=== PATIENT | male | born 1955 | race Caucasian/White ===

== ENCOUNTER 2023-06-14 14:45 | Emergency (ER) | payer OTHER, SELFPAY ==
[2023-06-14 14:57] VITALS: BP 142/111; PULSE 82; RESP 18; TEMP 36.6; O2SAT 98
--- NOTE | 2023-06-14 15:01 | ED.URI ---
HPI - URI/Sore Throat General Chief Complaint: Upper Respiratory Infection Stated Complaint: Congestion Time Seen by Provider: 06/14/23 15:01 Source: patient Mode of arrival: ambulatory Limitations: no limitations History of Present Illness HPI Narrative: 67-year-old male presents with complaint of cough, congestion for the past 3 weeks. Taking [id number] Coricidin without relief of symptoms. Reports cough worse in the morning. No chest pain or shortness of breath. Afebrile. No pain. Denies nausea vomiting diarrhea. Patient well-appearing and talkative. Smokes 1 pack cigarettes a day. All systems reviewed and negative except as noted above. Related Data Allergies Allergy/AdvReac Type Severity Reaction Status Date / Time Penicillins AdvReac Mild Hives Verified 06/14/23 15:03 Review of Systems Review of Systems: CONSTITUTIONAL: Denies fever, chills, or sweats. EYES: Denies visual changes, redness, or discharge. ENT: Reports rhinorrhea, congestion. Denies sore throat, or otalgia. CARDIOVASCULAR: Denies chest pain, palpitations, or edema. RESPIRATORY: reports cough. Denies dyspnea. GASTROINTESTINAL: Denies abdominal pain, nausea, vomiting, or diarrhea. GENITOURINARY: Denies dysuria or hematuria. SKIN: Denies rash or itching. MUSCULOSKELETAL: Denies back pain, joint pain, or myalgia. NEUROLOGIC: Denies headache, numbness, or weakness. PSYCHIATRIC: Denies anxiety or depression. All other systems reviewed are negative, except as documented in HPI. [facility] Past Medical History Medical History Arthritis Bronchitis Smoker Tobacco use disorder Surgical History Surgical History H/O colonoscopy 2019 Family History Family History Mother Cerebrovascular accident Family history of heart disease in male family member before age 55 Social History Social History (Updated 02/05/23 @ 08:26 by Kinza Singleton) Smoking packs per day: 0.75 Smoking cigarettes per day: 15.0 Smoking status: Current every day smoker Tobacco type: cigarettes Alcohol intake: current Drinks per week: 5 Substance use: never Substance use type: does not use Lack of Transportation: No Lack of Food: Never True Current Housing: I Have Housing Concerned About Future Housing: No Difficulty Paying Gas/Electric Bills: No Difficulty Paying for Meds: No Currently Unemployed: No Difficulty w/ Childcare or Family Care: No Living arrangements: with family Occupation/Education: occupation 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 There is no relevant family history pertinent to the presenting complaint. Exam Narrative: GENERAL: This is a well-nourished, well-developed patient, in no apparent distress. HEAD: normocephalic, atraumatic. EYES: PERRL. Sclera clear/white. Vision is grossly intact. EARS: External ears normal, auditory canals clear and without drainage, Fluid bilateral TMs without erythema or perforation.. Hearing grossly intact. NOSE: External nose normal with clear nasal drainage, Erythema to nares without significant swelling. THROAT: Mucous membranes moist, erythema with postnasal drainage. NECK: Neck supple, non-tender without lymphadenopathy, masses or thyromegaly. CARDIOVASCULAR: Regular rate and rhythm without murmurs, gallops, or rubs. RESPIRATORY: Rhonchi and upper lung kendrick. Breath sounds equal bilaterally. No wheezes, rales, or rhonchi. SKIN: warm, Dry, intact with no suspicious lesions or rash, good texture and turgor. NEURO: a
== END 2023-06-14 15:19 | disposition home or self-care (01) ==
PROVIDERS: Emergency Provider Nurse Practitioner Family; PCP Family Medicine
DX: J06.9 Acute upper respiratory infection, unspecified (principal); F17.210 Nicotine dependence, cigarettes, uncomplicated; M19.90 Unspecified osteoarthritis, unspecified site
CPT/HCPCS: 99213; G0463

== ENCOUNTER 2023-12-26 08:15 | Outpatient (CLI) | payer MEDICARE, SELFPAY ==
--- NOTE | ~2023-12-26 | US_ITS ---
Thyroid ultrasound. Clinical History: Thyroid nodule Findings: Real-time sonography of the thyroid gland was performed. The right lobe measures 5.6 x 2.0 x 1.9 cm. The left lobe measures 4.6 x 1.6 x 2.2 cm. The isthmus is 5 mm in AP diameter. There is a 9 mm cystic nodule with mural nodularity in the right inferior pole. Impression: 9 mm cystic nodule with mural nodularity. Given small size, no definitive follow-up required. Reviewed, dictated and finalized at location M. Impression: 9 mm cystic nodule with mural nodularity. Given small size, no definitive follo w-up required.
--- NOTE | ~2023-12-26 | CT_ITS ---
Corrected Report Correction to Ordering Provider 12/27/2023 Val This report was recreated on 12/27/2023. Original report was signed by Enrique Guzman M.D. on 12/26/2023 9:[address] Scan of the Chest without Contrast: Clinical Indication: Lung cancer screening, nicotine dependence Technique: Contiguous sections were acquired throughout the chest without intravenous contrast. Dose reduction technique was used on this scan by utilizing automated exposure control and iterative reconstruction technique. The dose-length product (DLP) was 179.06 mGy-cm. Findings: There is no evidence of any significant mediastinal, hilar or axillary lymphadenopathy. The mediastinal soft tissues appear normal. There is no evidence of pleural or pericardial effusion. There is an irregular area of consolidation at the right lung base, possibly with focal air bronchograms superiorly. There is nearby linear scarring in the right lower lobe. No other pulmonary nodule evident. Images through the upper abdomen reveal no abnormalities. Impression: Lung RADS 4B: Very suspicious. Irregular consolidation right lung base which could reflect pneumonia versus possibly neoplasm. Short-term follow up CT scan in one month after appropriate interval therapy recommended. Tissue sampling could also be considered at this time to establish histologic diagnosis. Reviewed, dictated and finalized at location . MTDD Impression: Lung RADS 4B: Very suspicious. Irregular consolidation right lung base which co uld reflect pneumonia versus possibly neoplasm. Short-term follow up CT scan in one month after appropriate interval therapy recommended. Tissue sampling coul d also be considered at this time to establish histologic diagnosis.
== END 2023-12-26 08:16 ==
PROVIDERS: PCP Internal Medicine; Visit Provider Internal Medicine
DX: Z12.2 Encounter for screening for malignant neoplasm of respiratory organs (principal); R91.8 Other nonspecific abnormal finding of lung field; E04.1 Nontoxic single thyroid nodule; R05.9 Cough, unspecified; Z87.891 Personal history of nicotine dependence
CPT/HCPCS: 71271; 76536

== ENCOUNTER 2024-01-24 09:21 | Outpatient (CLI) | payer MEDICARE, SELFPAY ==
--- NOTE | ~2024-01-24 | CT_ITS ---
EXAMINATION: CT diagnostic chest wo con DATE: 01/24/2024 09:53 INDICATION: nicotine dependence, f/u from abn lung screening TECHNIQUE: Computed tomography (CT) of the chest was performed without intravenous contrast. Addition al 3D reconstructions utilizing coronal maximum intensity projection (MIP) were performed. Automated exposure control and iterative reconstruction technique were employed. The dose-length product was 19 6.34 mGy-cm. COMPARISON: CT dated 12/26/2023 FINDINGS: Mild discoid atelectasis/scarring at the lingula. Additional linear discoid atelectasis in the right lower lobe. At the medial aspect of the tendon atelectasis/scarring is a region of consolidation whic h appears wedge-shaped on both the sagittal and coronal images extending from the hilum towards the p osterior sulcus of the right lower lobe. The region of consolidation appears to have subjectively dec reased in thickness on both the sagittal and coronal imaging although it is difficult to identify exa ctly comparable location for definitive quantitative comparison. 3 mm likely intrafissural lymph node along the right minor fissure. No other suspicious pulmonary nodules, pulmonary edema or pleural eff usion. Heart size is normal. Small amount of atherosclerotic coronary artery calcification. No perica rdial effusion. Thoracic aorta is normal in caliber. No pathologically enlarged thoracic lymphadenopa thy. Mild to moderate thoracic spondylosis with chronic mild anterior wedging at L1 and L2. Subtle ap proximately 1 cm low-attenuation left renal cyst. IMPRESSION: 1. Subjective decrease in size on both sagittal and coronal imaging of a wedge-shaped region of conso lidation in the posterior basilar segment of the right lower lobe which most likely represents residu al post pneumonia or atelectasis. Would recommend continued follow-up in 3 months with low-dose nonco ntrast chest CT. Reviewed, dictated and finalized at location B. IMPRESSION: 1. Subjective decrease in size on both sagittal and coronal imaging of a wedge- shaped region of consolidation in the posterior basilar segment of the right lo wer lobe which most likely represents residual post pneumonia or atelectasis. W ould recommend continued follow-up in 3 months with low-dose noncontrast chest CT.
== END 2024-01-24 09:22 ==
LOC: GOSHIMG 09:22
PROVIDERS: PCP Internal Medicine; Visit Provider Internal Medicine
DX: R91.8 Other nonspecific abnormal finding of lung field (principal); Z87.891 Personal history of nicotine dependence
CPT/HCPCS: 71250

== ENCOUNTER 2024-05-01 04:04 | Day surgery (SDC) | payer MEDICARE, SELFPAY ==
[2024-04-10 09:37] VITALS: BMI 31.1
--- NOTE | 2024-05-01 11:02 | WPDANESEPPF ---
Anes - Initial Pre Proc Eval Procedure: Operation Date: 05/01/24 13:30 Proposed Procedures p Colonoscopy - Brendan Edge MD Date/Time: 05/01/24 11:02 Surgeon: Brendan Edge MD Pre Op Diagnosis: Personal hx. colon polyps Patient Data Age: 68 Gender: M Height: 1.85 m Weight: 107 kg Allergies Allergy/AdvReac Type Severity Reaction Status Date / Time Penicillins AdvReac Mild Hives Verified 05/01/24 12:17 Home Medications Medication Instructions Recorded Confirmed Type fenofibrate 160 mg tablet See Rx Instructions .Route 08/19/23 05/01/24 Rx .COMPLEX #90 tabs losartan 100 mg tablet See Rx Instructions .Route 09/13/23 05/01/24 Rx .COMPLEX #90 tabs meloxicam 15 mg tablet See Rx Instructions .Route 11/04/23 05/01/24 Rx .COMPLEX #30 tabs aspirin 81 mg tablet,delayed 81 mg PO DAILY 04/10/24 05/01/24 History release Patient hx anesthesia problems: none Family hx anesthesia problems: none Results Review: All pre-operative results and documents have been reviewed as part of the pre-operative evaluation. [facility] Past Medical History Medical History (Updated 05/01/24 @ 11:02 by William Finney DO) Arthritis Bronchitis Hyperlipidemia Hypertension Lung nodule seen on imaging study Smoker Tobacco use disorder Surgical History Surgical History H/O colonoscopy 2019 Family History Family History Mother Cerebrovascular accident Family history of heart disease in male family member before age 55 Social History Social History Smoking packs per day: 1 Smoking cigarettes per day: 20.0 Years smoked: 50 Smoking pack-years: 50.00 Smoking status: Current every day smoker Tobacco type: cigarettes Alcohol intake: current Drinks per week: 2 Alcohol use details: BEER Substance use: never Substance use type: does not use Lack of Transportation: No Lack of Food: Never True Current Housing: I Have Housing Concerned About Future Housing: No Difficulty Paying Gas/Electric Bills: No Difficulty Paying for Meds: No Currently Unemployed: No Difficulty w/ Childcare or Family Care: No Living arrangements: alone Occupation/Education: occupation 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 Gender identity (if verbalized by the patient): Male Sexual Orientation (if Verbalized by the Patient): Straight or Heterosexual Spiritual care concerns: No Agree to blood products: Yes Anes - Eval Final PreProcedure Day of Procedure 05/01/24 11:02 Patient weight: overweight Heart: regular rate and rhythm Lungs: clear to auscultation Airway: Mallampati scale class II Neurological: alert and oriented Last oral intake: >/= 8 hours ASA classification: III Emergent: no Anesthetic plan: proceed Anesthesia type and monitoring: general GIVS and standard monitoring Results Review: All pre-operative results and documents have been reviewed as part of the pre-operative evaluation. Informed Consent: The patient's anesthetic plan and its attendant risks and benefits were discussed with the patient/family/POA. Questions were solicited and answers provided to the satisfaction of the patient/family/POA.
[2024-05-01 12:19] VITALS: BP 161/82; PULSE 100; RESP 18; TEMP 36.6; O2SAT 98
[2024-05-01] MEDS: LACTATED RINGERS 1,000 ML 150 ML IV CONT (12:34)
--- NOTE | 2024-05-01 13:08 | PM.HPGS ---
History of Present Illness History of Present Illness Consent: Risks, benefits, and alternatives have been discussed and questions answered. Patient agrees to proceed with procedure. Chief complaint: Personal hx. colon polyps Narrative: Andreas Hernández is a 68 year old male with last colonoscopy 15 years ago Review of Systems Review of Systems: All systems reviewed & are unremarkable except as noted in HPI and below PMFSH Past Medical History Medical History (Updated 05/01/24 @ 13:10 by Brendan Edge MD) Arthritis Bronchitis Colon cancer screening Hyperlipidemia Hypertension Lung nodule seen on imaging study Smoker Tobacco use disorder Surgical History Surgical History H/O colonoscopy 2018 Family History Family History Mother Cerebrovascular accident Family history of heart disease in male family member before age 55 Social History Social History Smoking packs per day: 1 Smoking cigarettes per day: 20.0 Years smoked: 50 Smoking pack-years: 50.00 Smoking status: Current every day smoker Tobacco type: cigarettes Alcohol intake: current Drinks per week: 2 Alcohol use details: BEER Substance use: never Substance use type: does not use Lack of Transportation: No Lack of Food: Never True Current Housing: I Have Housing Concerned About Future Housing: No Difficulty Paying Gas/Electric Bills: No Difficulty Paying for Meds: No Currently Unemployed: No Difficulty w/ Childcare or Family Care: No Living arrangements: alone 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/Education: occupation 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 Gender identity (if verbalized by the patient): Male Sexual Orientation (if Verbalized by the Patient): Straight or Heterosexual Spiritual care concerns: No Agree to blood products: Yes Meds Home Medications and Allergies Home Medications Medication Instructions Recorded Confirmed Type fenofibrate 160 mg tablet See Rx Instructions .Route 08/19/23 05/01/24 Rx .COMPLEX #90 tabs losartan 100 mg tablet See Rx Instructions .Route 09/13/23 05/01/24 Rx .COMPLEX #90 tabs meloxicam 15 mg tablet See Rx Instructions .Route 11/04/23 05/01/24 Rx .COMPLEX #30 tabs aspirin 81 mg tablet,delayed 81 mg PO DAILY 04/10/24 05/01/24 History release Allergies Allergy/AdvReac Type Severity Reaction Status Date / Time Penicillins AdvReac Mild Hives Verified 05/01/24 12:17 Vital Signs Vital Signs - 24 hr 05/01/24 12:19 Temperature 97.8 F Pulse Rate 100 Respiratory Rate 18 Blood Pressure 161/82 H Pulse Oximetry 98 Oxygen Delivery Room Air Exam Const: General: comfortable and no acute distress HENMT: Face/Nose/Sinus: Normal nares present Eyes: General: appearance normal, both eyes and all related structures Neck: Neck: no JVD Resp: Auscultation: clear to auscultation bilaterally Cardio: Rate: regular rate Rhythm: regular rhythm GI: Inspection: non-distended GI Palp: Yes Soft to palpation Skin: General skin exam: normal color Neuro: General: gait normal Speech: normal speech Extrem: General: normal to inspection Psych: Mental Status: mental status grossly normal Assessment and Plan Assessment and plan (1) Colon cancer screening: Code(s): Z12.11 - Encounter for screening for malignant neoplasm of colon Status: Acute Assessment and Plan: colonoscopy
[2024-05-01 13:29] VITALS: BP 147/91; PULSE 74; RESP 22; O2SAT 96
[2024-05-01 13:39] VITALS: BP 169/104; PULSE 79; RESP 25; O2SAT 100
[2024-05-01 13:49] VITALS: BP 181/99; PULSE 67; RESP 18; O2SAT 98
== END 2024-05-01 13:58 | disposition home or self-care (01) ==
PROVIDERS: PCP Internal Medicine; Visit Provider Internal Medicine Gastroenterology
PROC: 0DJD8ZZ Inspection of Lower Intestinal Tract, Via Natural or Artificial Opening Endoscopic (ICD-10-PCS; CPT 45378; principal; 2024-05-01 13:30)
DX: Z12.11 Encounter for screening for malignant neoplasm of colon (principal); D12.2 Benign neoplasm of ascending colon; D12.4 Benign neoplasm of descending colon; K63.5 Polyp of colon; K57.30 Diverticulosis of large intestine without perforation or abscess without bleeding; I10 Essential (primary) hypertension; E78.5 Hyperlipidemia, unspecified; Z79.82 Long term (current) use of aspirin; F17.210 Nicotine dependence, cigarettes, uncomplicated
CPT/HCPCS: 45380; 45385; 88305; J2704; J7120

== ENCOUNTER 2025-01-04 10:37 | Outpatient (CLI) | payer MEDICARE, SELFPAY ==
--- NOTE | ~2025-01-04 | CT_ITS ---
CT Scan of the Chest without Contrast: Clinical Indication: Lung cancer screening, nicotine dependence Technique: Contiguous sections were acquired throughout the chest without intravenous contrast. Dose reduction technique was used on this scan by utilizing automated exposure control and iterative recon struction technique. The dose-length product (DLP) was 207.38 mGy-cm. COMPARISON: 01/24/2024 Findings: There is no evidence of any significant mediastinal, hilar or axillary lymphadenopathy. The mediastin al soft tissues appear normal. There is no evidence of pleural or pericardial effusion. There is bibasilar atelectasis or scarring. No pulmonary nodule evident. Images through the upper abdomen reveal no abnormalities. Impression: Lung RADS 2: Benign appearance. 12 month follow-up screening CT advised. Reviewed, dictated and finalized at [facility]. Impression: Lung RADS 2: Benign appearance. 12 month follow-up screening CT advised.
== END 2025-01-04 10:38 | disposition home or self-care (01) ==
PROVIDERS: PCP Nurse Practitioner; Visit Provider Internal Medicine
DX: Z12.2 Encounter for screening for malignant neoplasm of respiratory organs (principal); Z87.891 Personal history of nicotine dependence
CPT/HCPCS: 71271

== ENCOUNTER 2025-03-24 14:55 | Outpatient (CLI) | payer MEDICARE, SELFPAY ==
--- OUTSIDE RECORDS SUMMARY | 2004-03-09 03:15 | XMS_ITS | Continuity of Care Document ---
Author Organization [facility] Address [id number] [place] [address] [place] [address] Phone Care Team Providers Care News Content Specialist Name Role Phone Arsalan Collier DO Unavailable Unavailable Advance Directives Directive Yes / No Effective Date File Name No Information Encounters Encounter Description Practice Location Reason(s) For Visit Diagnoses Date Provider Providers Copied on Encounter [facility], [address], [place], [place], [id number], [place] tel:[phone] [facility] No Information [facility]. [address] [place], [address], [place]. tel:[phone] Family History Family Member Type Diagnosis Age At Onset No Information Payers Payer name Insurance type Covered democrat ID Authoriza tion(s) No Information Social History Type Description Quantity Date Captured Comments Sex Male Smoking Status No Information Chief Complaint And Reason For Visit No Information Reason For Referral Reason For Referral No Information History Of Present Illness Encounter Date Complaint History Of Prese nt Illness No Information Functional Status Date Functional Assessmen t No Information Instructions Date Instruction Additional Infor mation No Information Assessments Type Assessment Date No Information Patient Care Teams Name Effective Dates (start - stop) Status Members No Information
--- OUTSIDE RECORDS SUMMARY | 2025-03-23 10:35 | XMS_ITS | Continuity of Care Document ---
Author Organization [facility] Address [id number] [place] [address] [place] [id number] Phone Care Team Providers Care Geodetic Advisor Name Role Phone Caty Gan Unavailable Unavailable Allergies, Adverse Reactions, Alerts Substance Reaction Status Criticality Penicillins Active No Information Medications Medication Instructions Dosage Effective Dates (start - stop) Status Comments meloxicam 15 mg tablet take 1 tablet by oral route every day 15 MG - Active tizanidine 2 mg tablet take 1 tablet by oral route 2 times a day as needed for muscle spasms - Active aspirin 81 mg tablet,delayed release take 1 tablet by oral route 2 times every day 81 MG - Active Senna-S 8.6 mg-50 mg tablet take 1 tablet by oral route 2 times every day 1 tablet - Active Percocet 5 mg-325 mg tablet take 1-2 tablet by oral route every 4-6 hours as needed. Maximum 6 tablets per day - Active fenofibrate 160 mg tablet take 1 tablet by oral route every day 160 MG - Active losartan 100 mg tablet take 1 tablet by oral route every day 100 MG - Active Procedures Procedure Date POSTOP FOLLOW-UP VISIT TOTAL HIP ARTHROPLASTY X-RAY HIP UNI W PELVIS 2-3 VIEWS 2024 OFFICE/OUTPATIENT VISIT EST X-RAY HIP UNI W PELVIS 2-3 VIEWS 2024 POSTOP FOLLOW-UP VISIT POSTOP FOLLOW-UP VISIT TOTAL HIP ARTHROPLASTY X-RAY HIPS BI W PELVIS 3-4 VIEWS 2024 OFFICE/OUTPATIENT VISIT [facility] Advance Directives Directive Yes / No Effective Date File Name Resuscitation Not Answered N/A N/A Life Support Not Answered N/A N/A Intubation Not Answered N/A N/A Antibiotics Not Answered N/A N/A IV Fluid Support Not Answered N/A N/A Tube Feed Not Answered N/A N/A Other Directive N/A N/A WARNING:The information contained in this section is historical and is provided for information only and does not constitute a legal document or any assurance that the information is still accurate. Please verify the information with the orozco of the legal document before using it for clinical purposes. Encounters Encounter Description Practice Location Reason(s) For Visit Diagnoses Date Provider Providers Copied on Encounter [facility], [address] [address], [place], [place], [facility], [place] tel:[phone] [facility] Status post total replacement of left hipPain of left calf 5 Jennifer Byrne. [address] [facility] [address], [place], [place], [id number] , [place]. tel: [phone] [facility] [address] [facility] [address], [address], [place] tel:[phone] [facility] Status post total replacement of left hip 5 L'Hommedi eu Gu[place]upe. [address] , [place], [place], [id number] . tel: [phone] [facility], [address] [address], [place], [address], [place] tel:[phone] [facility] Primary osteoarthritis of left hipPreoperative testingStatus post total replacement of left hip 5 [place]. [address] [facility] [place], [place], [id number] . tel: [phone] OFFICE/OUTPA TIENT VISIT EST [facility], [address] [facility] [address], [place], [address], [place] tel:[phone] [facility] Primary osteoarthritis of left hipStatus post total replacement of right hip 5 [place] [place]. [address], [place], [place], [id number] . tel: [phone] [facility], [address] [address], [place], [address], [place] tel:[phone] [facility] Status post total replacement of right hipPrimary osteoarthritis of left hip 5 [place]'Hom[address] [place]. [address] , [place], [place], [id number] . tel: [phone] Referring Provider: Vern Moran [address] , [place], [address]. tel:[phone] [facility], [address] [address], [place], [address], [place] tel:[phone] [facility] Status post total replacement of right hip 5 Tito Benoit. [address] [facility] [address], [place], [address]. tel: [phone] Referring Provider: Vern Moran [address] , [place], [address]. [phone] [facility], [address] [address], [place], [address], [place] tel:[phone] [facility] Unilateral primary osteoarthritis, right hip 5 L'Hom[address] [place]. [address] , [place], [place], [id number] . tel: [phone] [facility], [address], [address], [place] tel:[phone] [facility] Primary osteoarthritis of right hipStatus post total replacement of right hipPreoperative testing 5 L'Hom[address] [place]. [address] , [place], [place], [id number] . tel: [phone] OFFICE/OUTPA TIENT VISIT NEW [facility], [address] [facility], [place], [address], [place] tel:[phone] [facility] Pain in left hipPain in right hipPrimary osteoarthritis of right hipPrimary osteoarthritis of left hip Aline Ba. [address], [place], [place], [address] . tel: [phone] Referring Provider: Vern Moran, [address] [place], [address]. [phone] Family History Family Member Type Diagnosis Age At Onset No Information Payers Payer name Insurance type Covered constitution party ID Authoriza tion(s) Medicare E2 OT [id number] [facility] OT [id number] Social History Type Description Quantity Date Captured Comments Alcohol Use Details Unknown Caffeine Use Details Unknown Tobacco Use Status Heavy cigarette smok er (20-39 cigs/day) Smoking Status Heavy tobacco smoker Sex Male Chief Complaint And Reason For Visit No Information Reason For Referral Reason For Referral No Information Plan Of Treatment Date Type Action Status Goal Tobacco cessation counseling completed Goal Tobacco cessation counseling completed Referral Ordered: UPR/LXTR ISIDRA DUPLEX STDY UNI/LMTD LT leg ordered Referral Ordered: UPR/LXTR ISIDRA DUPLEX STDY UNI/LMTD Appointment date/timeframe: 03/24/2025 ordered Referral Ordered: X-RAY HIP UNI W PELVIS 2-3 VIEWS LT hip ordered Referral Ordered: X-RAY HIP UNI W PELVIS 2-3 VIEWS RT ordered Referral Ordered: ELECTROCARDIOGRAM COMPLETE ordered Referral Ordered: X-RAY EXAM CHEST 2 VIEWS ordered Referral Ordered: X-RAY HIPS BI W PELVIS 3-4 VIEWS Bilateral hip ordered Appointment Andreas Hernández Scheduled Future Order: Lab Order CBC With Differential/Platelet ([id number]), Ordered on: Ordered Future Order: Lab Order Comp. Me tabolic Panel (14) ([id number]), Ordered on: Ordered Future Order: Lab Order Prothrom bin Time (PT) ([id number]), Ordered on: Ordered Future Order: Lab Order CBC With Differential/Platelet ([id number]), Ordered on: Ordered Future Order: Lab Order Comp. Me tabolic Panel (14) ([id number]), Ordered on: Ordered Future Order: Lab Order Prothrom bin Time (PT) ([id number]), Ordered on: Ordered History Of Present Illness Encounter Date Complaint History Of Prese nt Illness No Information Functional Status Date Functional Assessmen t No Information Instructions Date Instruction Additional Infor mation No Information Assessments Type Assessment Date assessment Status post total replacement of left hip assessment Pain of left calf Patient Care Teams Name Effective Dates (start - stop) Status Members No Information
--- NOTE | ~2025-03-24 | US_ITS ---
EXAMINATION:US venous doppler LE LT INDICATION:Status post total hip replacement. TECHNIQUE: Multiple grayscale, color flow and Doppler images of the left lower extremity deep venous systems were obtained and reviewed. COMPARISON:None available at this time FINDINGS: The common femoral, superficial femoral and popliteal veins demonstrate normal respiratory variation, augmentation and compressibility. Color flow is also seen within the posterior tibial, peroneal, greater saphenous and profunda veins. IMPRESSION: 1: No left lower extremity deep venous thrombosis. Reviewed, dictated and finalized at location Q.
--- OUTSIDE RECORDS SUMMARY | 2025-03-24 15:02 | XMS_ITS | Clinical Summary ---
Author Organization [facility] Address [address] [place] [address] Care Team Providers Care Supervisor Word Processing Name Role Phone Eren Elliott MD Primary Care Provider [phone] Social History Tobacco Use Types Packs/Day Years Used Date Smoking Tobacco: Never Assessed Sex and Gender Information Value Date Recorded Sex Assigned at Not on file Legal Sex Male 5:28 PM CDT Gender Identity Not on file Sexual Orientation Not on file Plan of Treatment Health Maintenance Due Date Last Done Comments Colorectal Cancer Screening Colonoscopy (10 Years) 1955 Hepatitis C 1973 DTaP, Tdap and Td Vaccines ( 1 - Tdap) 1974 Pneumococcal Vaccine: 50+ Years (1 of 1 - PCV) 2005 Zoster Vaccines (1 of 2) 2005 COVID-19 Vaccine (3 - 2023-2 5 season) 2024 10/20/2020, 09/29/2020 RSV Immunization or 60+ Years (1 - 1-dose 75+ series) 2030 Meningococcal B Vaccine Aged Out No l onger eligible based on patient's age to complete this topic Meningococcal Vaccine Aged Out No chary trevor eligible based on patient's age to complete this topic RSV Immunizations Under 20 Months Aged Out No longer eligible b ased on patient's age to complete this topic Insurance [employer] Care Teams Supervisor Word Processing Relationship Specialty Start Date End Date Eren Elliott MD [address] [place] [address] [phone] PCP - General INTERNAL MEDICINE 08/23/21
== END 2025-03-24 14:56 | disposition home or self-care (01) ==
PROVIDERS: PCP Nurse Practitioner
DX: M79.662 Pain in left lower leg (principal); Z96.642 Presence of left artificial hip joint
CPT/HCPCS: 93971